=== PATIENT | male | born 1955 | race Caucasian/White ===

== ENCOUNTER 2018-07-12 12:18 | Observation (INO) | payer BC, OTHER ==
[2018-07-12 13:55] LABS: ADD MAN DIFF? NO
[2018-07-12 14:10] LABS: WHITE BLOOD COUNT 5.9 10^3/ul (4.8-10.8)
[2018-07-12 14:10] LABS: BASOPHILS % 0.5 % (0.0-2.0); EOSINOPHILS # 0.1 10^3/ul (0.0-0.5); EOSINOPHILS % 1.9 % (0.0-7.0); HEMATOCRIT 38.3 % (42.0-52.0); HEMOGLOBIN 12.5 g/dl (14.0-18.0); LYMPHOCYTES # 1.9 10^3/ul (0.8-2.9); LYMPHOCYTES % 32.5 % (15.0-51.0); MEAN CORPUSCULAR HEMOGLOBIN 28.5 pg (29.0-33.0); MEAN CORPUSCULAR HGB CONC 32.6 g/dl (32.0-37.0); MEAN CORPUSCULAR VOLUME 87.4 fl (82.0-101.0); MEAN PLATELET VOLUME 10.1 fl (7.4-10.4); MONOCYTE # 0.7 10^3/ul (0.3-0.9); MONOCYTES % 11.7 % (0.0-11.0); NEUTROPHIL # 3.1 10^3/ul (1.6-7.5); NEUTROPHILS % 53.2 % (39.0-77.0); PLATELET COUNT 230 10^3/UL (140-415); RED BLOOD COUNT 4.38 10^6/ul (4.70-6.10)
[2018-07-12 14:28] LABS: ANION GAP 6 (5-13); BLOOD UREA NITROGEN 13 mg/dl (7-20); CALCIUM 9.3 mg/dl (8.4-10.2); CARBON DIOXIDE 30 mmol/L (21-31); CHLORIDE 106 mmol/L (97-110); CREATININE 0.83 mg/dl (0.61-1.24); Estimated GFR > 60 mL/min (>60); GLUCOSE 107 mg/dl (70-220); POTASSIUM 4.1 mmol/L (3.5-5.1); SODIUM 142 mmol/L (135-144)
[2018-07-12 14:39] LABS: TROPONIN-I < 0.012 ng/ml (0.000-0.120)
[2018-07-12] MEDS ORDERED: ESCITALOPRAM 10 MG TAB PO (15:30)
[2018-07-12] MEDS ORDERED: ACETAMINOPHEN 325 MG TAB PO (15:30)
[2018-07-12] MEDS ORDERED: ONDANSETRON 4 MG INJ IV (15:30)
[2018-07-12] MEDS ORDERED: HYDROCODONE/APAP (5/325) TAB PO (16:30)
[2018-07-12] MEDS ORDERED: NACL 0.9% 3 ML SYG IV (16:30)
[2018-07-12] MEDS: ASPIRIN 81 MG TAB PO (16:48)
[2018-07-12 19:24] LABS: CREATINE KINASE 108 IU/L (23-200)
[2018-07-12 19:37] LABS: CK-MB 1.06 ng/ml (0.0-2.4); TROPONIN-I 0.015 ng/ml (0.000-0.120)
[2018-07-12] MEDS: ATORVASTATIN 80 MG TAB PO (20:03)
[2018-07-12] MEDS: LISINOPRIL 5 MG TAB PO (20:20)
[2018-07-12] MEDS ORDERED: ATORVASTATIN 10 MG TAB PO (21:00)
[2018-07-13 02:56] LABS: ADD MAN DIFF? NO
[2018-07-13 03:00] LABS: WHITE BLOOD COUNT 7.4 10^3/ul (4.8-10.8)
[2018-07-13 03:00] LABS: BASOPHILS % 0.5 % (0.0-2.0); EOSINOPHILS # 0.1 10^3/ul (0.0-0.5); EOSINOPHILS % 1.9 % (0.0-7.0); HEMATOCRIT 36.4 % (42.0-52.0); HEMOGLOBIN 12.1 g/dl (14.0-18.0); LYMPHOCYTES # 2.8 10^3/ul (0.8-2.9); LYMPHOCYTES % 37.9 % (15.0-51.0); MEAN CORPUSCULAR HEMOGLOBIN 28.5 pg (29.0-33.0); MEAN CORPUSCULAR HGB CONC 33.2 g/dl (32.0-37.0); MEAN CORPUSCULAR VOLUME 85.6 fl (82.0-101.0); MONOCYTE # 0.8 10^3/ul (0.3-0.9); MONOCYTES % 10.8 % (0.0-11.0); NEUTROPHIL # 3.6 10^3/ul (1.6-7.5); NEUTROPHILS % 48.6 % (39.0-77.0); PLATELET COUNT 219 10^3/UL (140-415); RED BLOOD COUNT 4.25 10^6/ul (4.70-6.10); RED CELL DISTRIBUTION WIDTH 15.2 % (11.5-14.5)
[2018-07-13 03:08] LABS: HEMOGLOBIN A1C 5.5 % (0-5.9)
[2018-07-13 03:17] LABS: CREATINE KINASE 99 IU/L (23-200)
[2018-07-13 03:31] LABS: CK INDEX 0.7; CK-MB 0.73 ng/ml (0.0-2.4); TROPONIN-I 0.029 ng/ml (0.000-0.120)
[2018-07-13 04:23] LABS: ALANINE AMINOTRANSFERASE 35 IU/L (13-69); ALBUMIN 3.8 g/dl (3.3-4.9); ALBUMIN/GLOBULIN RATIO 1.46; ALKALINE PHOSPHATASE 67 IU/L (42-121); ANION GAP 7 (5-13); ASPARTATE AMINO TRANSFERASE 26 IU/L (15-46); BILIRUBIN,INDIRECT 0.6 mg/dl (0-1.1); BILIRUBIN,TOTAL 0.6 mg/dl (0.2-1.3); BLOOD UREA NITROGEN 12 mg/dl (7-20); CALCIUM 9.3 mg/dl (8.4-10.2); CARBON DIOXIDE 28 mmol/L (21-31); CHLORIDE 106 mmol/L (97-110); CREATININE 0.96 mg/dl (0.61-1.24); Estimated GFR > 60 mL/min (>60); GLUCOSE 97 mg/dl (70-220); POTASSIUM 4.1 mmol/L (3.5-5.1); SODIUM 141 mmol/L (135-144); TOTAL PROTEIN 6.4 g/dl (6.1-8.1)
[2018-07-13] MEDS: ASPIRIN (EC) 81 MG TAB PO (08:48)
[2018-07-13] MEDS: LISINOPRIL 5 MG TAB PO ×2 (08:50→21:36)
[2018-07-13] MEDS: ENOXAPARIN 30 MG/0.3 ML SYG SC (09:09)
[2018-07-13] MEDS: REGADENOSON 0.4 MG/5 ML SYG (12:35)
[2018-07-13] MEDS ORDERED: NITROGLYCERIN (SL) 0.4 MG TAB SL (13:00)
[2018-07-13] MEDS: ISOSORBIDE DINITRATE 20 MG TAB PO ×2 (15:04→21:36)
[2018-07-13] MEDS: ATORVASTATIN 80 MG TAB PO (21:36)
[2018-07-14 06:11] LABS: CHOL/HDL RATIO 6.8 RATIO; HDL CHOLESTEROL 32 mg/dl (30-78); LDL CHOLESTEROL,CALCULATED 153 mg/dl; TRIGLYCERIDES 175 mg/dl (0-149)
[2018-07-14 06:11] LABS: CHOLESTEROL 220 mg/dl (100-200)
[2018-07-14] MEDS: ASPIRIN (EC) 81 MG TAB PO (08:35)
[2018-07-14] MEDS: ENOXAPARIN 30 MG/0.3 ML SYG SC (08:46)
== END 2018-07-14 15:52 | disposition home or self-care (01) ==
LOC: E/R 12:18 → 6WM 15:10
DX: I25.10 Atherosclerotic heart disease of native coronary artery without angina pectoris (principal); Z95.5 Presence of coronary angioplasty implant and graft; I10 Essential (primary) hypertension; E78.5 Hyperlipidemia, unspecified; Z79.82 Long term (current) use of aspirin
CPT/HCPCS: 36415; 71045; 78452; 80048; 80053; 80061; 82550; 82553; 83036; 84443; 84484; 85025; 93005; 93017; 93306; 99285-25; G0378